=== PATIENT | female | born 1990 | race Caucasian/White ===

== ENCOUNTER 2020-06-16 13:30 | Emergency (ER) | payer OTHER ==
[~2020-06-16] VITALS: Ht 160 cm; Wt 78.6 kg
[2020-06-16 13:31] VITALS: BP 151/90
--- NOTE | 2020-06-16 13:50 | PHYS DOC ---
Past History Past Medical History: No Pertinent History Past Surgical History: No Surgical History Adult General Chief Complaint Chief Complaint: FOOT INJURY PAIN [facility] HPI Patient is a 29-year-old female who presents with left ankle inversion injury that happened just prior to arrival. States she was running down stairs in her home when she suffered an inversion type sprain, she felt she heard a "pop "with immediate focal pain to the left lateral portion of her ankle. She has been unable to bear weight on this ankle, she is concerned for potential bony abnormality. Denies any motor and/or sensory changes, no other neurologic findings Review of Systems Review of Systems Fourteen body systems of review of systems have been reviewed. See HPI for pertinent positives and negative responses, other cheng all other systems are negative, non-pertinent or non-contributory Allergies Allergies Allergies Coded Allergies Type Severity Reaction Last Updated Verified No Known Drug Allergies 06/16/20 No Physical Exam Physical Exam Constitutional: Well developed, well nourished, no acute distress, non-toxic appearance. HENT: Normocephalic, atraumatic, bilateral external ears normal, oropharynx moist, no oral exudates, nose normal. Eyes: PERRLA, EOMI, conjunctiva normal, no discharge. Neck: Normal range of motion, no tenderness, supple, no stridor. Cardiovascular: Heart rate regular, sinus rhythm, no murmurs rubs or gallops Lungs & Thorax: Bilateral breath sounds clear to auscultation Abdomen: Bowel sounds normal, soft, no tenderness, no masses, no pulsatile masses. Nonsurgical abdomen, no peritoneal signs Skin: Warm, dry, no erythema, no rash. Back: No tenderness, no CVA tenderness. Extremities: No cyanosis, no clubbing no edema. Tenderness present to left lateral malleoli in addition to base of left fifth metatarsal on left foot. Decreased range of motion in all planes of motion of left ankle due to pain otherwise unremarkable examinations, lower extremity pulses bilaterally 2+, Neurologic: Alert and oriented X 3, normal motor & sensory function in bilateral lower extremities, no focal deficits noted. Psychologic: Affect normal, judgement normal, anxious mood Current Patient Data Vital Signs Vital Signs Date Time Temp Pulse Resp B/P (MAP) Pulse Ox O2 Delivery O2 Flow Rate FiO2 06/16/20 13:31 97.1 75 16 151/90 (110) 100 Room Air EKG EKG [] Radiology/Procedures Radiology/Procedures PROCEDURE: FOOT LEFT 3V Left foot 3 views, left ankle 3 views. HISTORY: Inversion injury, pain Left foot 3 views were taken of the left foot. There is not evidence of an acute fracture or osseous abnormality. Left ankle 3 views were taken of the left ankle. There is not evidence of an acute fracture or osseous abnormality. IMPRESSION: 1. No acute fracture noted in the left foot. 2. No acute fracture noted in the left ankle. Electronically signed by: Josemanuel De La Rosa MD (06/16/2020 2:07 PM) [facility] Heart Score Risk Factors: Risk Factors: DM, Current or recent (<one month) smoker, HTN, HLP, family history of CAD, obesity. Risk Scores: Risk Factors: DM, Current or recent (<one month) smoker, HTN, HLP, family history of CAD, obesity. Course & Med Decision Making Course & Med Decision Making ABCs unremarkable Positive Bullock ankle rule, radiographs negative for any bony abnormalities of left ankle. Discussed most likely diagnosis of left ankle sprain. Patient discharged home in stable condition with close outpatient follow-up and ongoing supportive care advised Strict return precautions discussed with good understanding, all questions and concerns addressed prior to ER departure in stable condition with ankle brace and crutches Yanet Disclaimer Yanet Disclaimer This electronic medical record was generated, in whole or in part, using a voice recognition dictation system. Departure Departure: Impression: Primary Impression: Sprain of left foot Disposition: 01 DC HOME SELF CARE/HOMELESS Condition: STABLE Referrals: PCP,UNKNOWN (PCP) Patient Instructions: Foot Sprain, RICE - Routine Care for Injuries Additional Instructions: As discussed prior to ER departure, please call your primary care physician to follow-up in outpatient setting in upcoming 1 to 14 days after ER departure As discussed, please provide supportive care utilizing resources attached, utilize RICE protocol and Tylenol and/or NSAIDs for as needed pain There might be a role in further intervention and/or need for physical therapy or sports med referral if your symptoms do not improve If any concerning signs or symptoms present prior to outpatient follow-up please do not hesitate to come back for repeat examination It was a pleasure to take care of you and I wish you a speedy recovery TERRY HUIZAR DO Jun 16, 2020 13:50
[2020-06-16] MEDS ORDERED: HYDROcodone/APAP 5/325MG 1 TAB TABLET PO ONE (14:00)
--- NOTE | 2020-06-16 14:10 | RAD ---
Left foot 3 views, left ankle 3 views. HISTORY: Inversion injury, pain Left foot 3 views were taken of the left foot. There is not evidence of an acute fracture or osseous abnormality. Left ankle 3 views were taken of the left ankle. There is not evidence of an acute fracture or osseous abnormality. IMPRESSION: 1. No acute fracture noted in the left foot. 2. No acute fracture noted in the left ankle. Electronically signed by: Josemanuel De La Roas MD (06/16/2020 2:07 PM) [facility]
--- NOTE | 2020-06-16 14:10 | RAD ---
Left foot 3 views, left ankle 3 views. HISTORY: Inversion injury, pain Left foot 3 views were taken of the left foot. There is not evidence of an acute fracture or osseous abnormality. Left ankle 3 views were taken of the left ankle. There is not evidence of an acute fracture or osseous abnormality. IMPRESSION: 1. No acute fracture noted in the left foot. 2. No acute fracture noted in the left ankle. Electronically signed by: Josemanuel De La Rosa MD (06/16/2020 2:07 PM) [facility]
== END 2020-06-16 14:45 | disposition home or self-care (01) ==
LOC: ER 13:30
DX: S93.692A Other sprain of left foot, initial encounter (principal); M25.572 Pain in left ankle and joints of left foot; W10.8XXA Fall (on) (from) other stairs and steps, initial encounter; Y93.89 Activity, other specified; Y92.89 Other specified places as the place of occurrence of the external cause; Y99.8 Other external cause status
CPT/HCPCS: 73610; 73630; 99284

== ENCOUNTER 2020-08-26 06:34 | Emergency (ER) | payer OTHER ==
[~2020-08-26] VITALS: Ht 160 cm; Wt 75.0 kg
--- NOTE | 2020-08-26 07:05 | PHYS DOC ---
Past History Past Medical History: Anxiety, Other Additional Past Medical Histor: ADHD,pcos Past Surgical History: No Surgical History Alcohol Use: None General Adult EDM: Chief Complaint: SYNCOPE HPI: HPI: Patient is a 30-year-old female coming in after syncopal episode. Patient had gotten up to use the restroom and passed out from the toilet. Denies any head injuries but scraped her arm. She states that her menstrual cycles are yesterday and she has had heavy flow. And felt severe lower abdominal cramping more so on the left side prior to passing out. Has a sister who has a history of similar episodes in the attributed to PCOS and ovarian cyst. Patient states she sometimes gets lightheaded when she stands up quickly but otherwise denies any lightheadedness. Denies any recent illness. States she otherwise has been well recently. Review of Systems: Review of Systems: All other systems within normal limits except for as noted in the HPI Allergies: Allergies: Allergies Coded Allergies Type Severity Reaction Last Updated Verified No Known Drug Allergies 06/16/20 No Physical Exam: PE: Constitutional: Well developed, well nourished, no acute distress, non-toxic appearance. [] HENT: Normocephalic, atraumatic, bilateral external ears normal, nose normal. [] Eyes: PERRLA, conjunctiva normal, no discharge. [] Neck: No rigidity, supple, no stridor. [] Cardiovascular: Regular rate and rhythm, brisk cap refill [] Lungs & Thorax: Non labored symmetric respirations, no tachypnea or respiratory distress [] Abdomen: Soft, nondistended, left lower and suprapubic tenderness.. Skin: Warm, dry, no erythema, no rash. [] Back: Unremarkable Extremities: No deformities, range of motion grossly intact, no lower extremity edema [] Neurologic: Alert and oriented X 3, no focal deficits noted. [] Psychologic: Affect normal, judgement normal, mood normal. [] Current Patient Data: Vital Signs: Vital Signs Date Time Temp Pulse Resp B/P (MAP) Pulse Ox O2 Delivery O2 Flow Rate FiO2 08/26/20 06:34 98.8 54 18 132/79 (96) 100 Room Air EKG: EKG: Sinus rhythm, heart rate 55 bpm, normal axis, no ectopy, no ST elevation or depression. Normal intervals, T waves unremarkable [] Radiology/Procedures: Radiology/Procedures: EXAM: CT chest with contrast - pulmonary embolus protocol CLINICAL HISTORY: Reason: syncope, lower abdominal pain COMPARISON: None. TECHNIQUE: CT of the chest following the administration of intravenous contrast during the pulmonary arterial phase. Axial, coronal and sagittal reformatted images were generated including MIP images. ---PQRS compliance statement - One or more of the following individualized dose reduction techniques were utilized for this study: 1. Automated exposure control 2. Adjustment of the mA and/or kV according to patient size 3. Use of iterative reconstruction technique--- FINDINGS: CHEST: Diagnostic quality: Adequate. Pulmonary emboli: None seen Right heart strain: None Pulmonary arteries: Normal in caliber. Heart is not enlarged. No pericardial effusion. No pleural effusion or pneumothorax. The mediastinal or hilar lymphadenopathy. Trace residual anterior mediastinal soft tissue density likely residual thymus. Fat-containing lesion in the lateral aspect of the left breast laterally may represent a lipoma. 4 mm middle lobe lung nodule (series 4 image 77) is seen. No lobar consolidation. Bones: No aggressive osseous lesion is seen. IMPRESSION: No evidence for acute pulmonary embolus. 4 mm middle lobe lung nodule. Given patient's age, any further follow-up should be based on clinical criteria. EXAM: CT Abdomen and Pelvis with IV contrast CLINICAL HISTORY: syncope, lower abdominal pain COMPARISON: none TECHNIQUE: Helical CT of the abdomen and pelvis was performed following the administration of intravenous contrast. Axial, coronal and sagittal reformatted images were generated. PQRS compliance statement - One or more of the following individualized dose reduction techniques were utilized for this study: 1. Automated exposure control 2. Adjustment of the mA and/or kV according to patient size 3. Use of iterative reconstruction technique FINDINGS: Abdomen and Pelvis: Focal low-attenuation along the falciform ligament likely focal fatty liver. Gallbladder is normal. No biliary ductal dilatation. Pancreas is unremarkable. Spleen is normal in appearance. Adrenal glands are unremarkable. Symmetric nephrograms. No focal renal lesion. No hydronephrosis. No hydroureter. Bladder is unremarkable. No abdominal or pelvic lymphadenopathy. Moderate to large volume colonic stool content is seen. No small or large bowel dilatation. No bowel obstruction. Appendix is not convincingly seen. No significant pericecal inflammatory change. Heterogeneous enhancement of the uterus, can be correlated with pelvic ultrasound if clinically indicated. No dominant adnexal mass. No abdominal or pelvic ascites. Bones: No aggressive osseous lesion is seen. IMPRESSION: 1. Focal low-attenuation along the falciform ligament likely focal fatty infiltration. 2. Moderate colonic stool content. No bowel obstruction. 3. Heterogeneous enhancement of the uterus, can be correlated with pelvic ultrasound if clinically indicated. [] Heart Score: Risk Factors: Risk Factors: DM, Current or recent (<one month) smoker, HTN, HLP, family history of CAD, obesity. Risk Scores: Score 0 - 3: 2.5% MACE over next 6 weeks - Discharge Home Score 4 - 6: 20.3% MACE over next 6 weeks - Admit for Clinical Observation Score 7 - 10: 72.7% MACE over next 6 weeks - Early Invasive Strategies Course & Med Decision Making: Course & Med Decision Making Pertinent Labs and Imaging studies reviewed. (See chart for details) [] Yanet Disclaimer: Yanet Disclaimer: This electronic medical record was generated, in whole or in part, using a voice recognition dictation system. Departure Departure: Impression: Primary Impression: Syncope Disposition: 01 DC HOME SELF CARE/HOMELESS Condition: STABLE Referrals: PCP,UNKNOWN (PCP) Patient Instructions: Syncope BASSAM KELLY MD Aug 26, 2020 07:05
[2020-08-26 08:11] LABS: BASO % 0 % (0-3); EOS # 0.1 x10^3/uL (0.0-0.7); EOS % 1 % (0-3); HEMATOCRIT 38.4 % (36.0-47.0); HEMOGLOBIN 12.4 g/dL (12.0-15.5); LYMPH # 1.9 x10^3/uL (1.0-4.8); LYMPH % 22 % (24-48); MEAN CORPUSCULAR HEMOGLOBIN 27 pg (25-35); MEAN CORPUSCULAR HGB CONC 32 g/dL (31-37); MEAN CORPUSCULAR VOLUME 85 fL (79-100); MONO # 0.6 x10^3/uL (0.0-1.1); MONO % 7 % (0-9); NEUT % 69 % (31-73); PLATELET COUNT 173 x10^3/uL (140-400); RED BLOOD COUNT 4.53 x10^6/uL (3.50-5.40); RED CELL DISTRIBUTION WIDTH 14.6 % (11.5-14.5); WHITE BLOOD COUNT 8.7 x10^3/uL (4.0-11.0)
[2020-08-26 08:11] LABS: U PREG PATIENT NEGATIVE (NEG)
[2020-08-26 08:13] LABS: CALCIUM 9.1 mg/dL (8.5-10.1); CREATININE 0.9 mg/dL (0.6-1.0); GFR 74.6; POTASSIUM 3.4 mmol/L (3.5-5.1)
[2020-08-26 08:14] LABS: BARBITURATES NEG (NEG); BENZODIAZEPINES NEG (NEG); CANNABINOIDS NEG (NEG); COCAINE NEG (NEG); METHADONE NEG (NEG); OPIATES NEG (NEG); PHENCYCLIDINE NEG (NEG)
[2020-08-26] MEDS ORDERED: KETOROLAC 15 MG/ML VIAL. IVP ONE (08:15)
[2020-08-26] MEDS ORDERED: IV NORMAL SALINE 1,000ML 1,000 ML IV ONE (08:15)
[2020-08-26 08:18] LABS: AMPHETAMINE/METHAMPHETAMINE NEG (NEG)
[2020-08-26 08:25] LABS: ALBUMIN 4.1 g/dL (3.4-5.0); ALBUMIN/GLOBULIN RATIO 1.2 (1.0-1.7); TOTAL BILIRUBIN 0.4 mg/dL (0.2-1.0); TOTAL PROTEIN 7.6 g/dL (6.4-8.2)
[2020-08-26 08:29] LABS: COLOR,URINE YELLOW
[2020-08-26 08:30] LABS: BACTERIA,URINE 0 /HPF (0-FEW); BILIRUBIN,URINE NEG (NEG); CLARITY,URINE HAZY; GLUCOSE,URINE NEG (NEG); NITRITE,URINE NEG (NEG); RBC,URINE >40 /HPF (0-2); SQUAMOUS EPITHELIAL CELL,UR MOD /LPF; UROBILINOGEN,URINE 0.2 mg/dL (0.2 mg/dL)
[2020-08-26] MEDS ORDERED: IOHEXOL 350 MG/ML 100 ML VIAL. IV ONE (09:10)
--- NOTE | 2020-08-26 09:53 | RAD ---
EXAM: CT chest with contrast - pulmonary embolus protocol CLINICAL HISTORY: Reason: syncope, lower abdominal pain COMPARISON: None. TECHNIQUE: CT of the chest following the administration of intravenous contrast during the pulmonary arterial phase. Axial, coronal and sagittal reformatted images were generated including MIP images. ---PQRS compliance statement - One or more of the following individualized dose reduction techniques were utilized for this study: 1. Automated exposure control 2. Adjustment of the mA and/or kV according to patient size 3. Use of iterative reconstruction technique--- FINDINGS: CHEST: Diagnostic quality: Adequate. Pulmonary emboli: None seen Right heart strain: None Pulmonary arteries: Normal in caliber. Heart is not enlarged. No pericardial effusion. No pleural effusion or pneumothorax. The mediastinal or hilar lymphadenopathy. Trace residual anterior mediastinal soft tissue density lik balta residual thymus. Fat-containing lesion in the lateral aspect of the left breast laterally may rep resent a lipoma. 4 mm middle lobe lung nodule (series 4 image 77) is seen. No lobar consolidation. Bones: No aggressive osseous lesion is seen. IMPRESSION: No evidence for acute pulmonary embolus. 4 mm middle lobe lung nodule. Given patient's age, any further follow-up should be based on clinical criteria. EXAM: CT Abdomen and Pelvis with IV contrast CLINICAL HISTORY: syncope, lower abdominal pain COMPARISON: none TECHNIQUE: Helical CT of the abdomen and pelvis was performed following the administration of intrave nous contrast. Axial, coronal and sagittal reformatted images were generated. PQRS compliance statement - One or more of the following individualized dose reduction techniques wer e utilized for this study: 1. Automated exposure control 2. Adjustment of the mA and/or kV according to patient size 3. Use of iterative reconstruction technique FINDINGS: Abdomen and Pelvis: Focal low-attenuation along the falciform ligament likely focal fatty liver. Gallbladder is normal. N o biliary ductal dilatation. Pancreas is unremarkable. Spleen is normal in appearance. Adrenal glands are unremarkable. Symmetric nephrograms. No focal renal lesion. No hydronephrosis. No hydroureter. Bladder is unremarka ble. No abdominal or pelvic lymphadenopathy. Moderate to large volume colonic stool content is seen. No small or large bowel dilatation. No bowel obstruction. Appendix is not convincingly seen. No significant pericecal inflammatory change. Heterogeneous enhancement of the uterus, can be correlated with pelvic ultrasound if clinically indic ated. No dominant adnexal mass. No abdominal or pelvic ascites. Bones: No aggressive osseous lesion is seen. IMPRESSION: 1. Focal low-attenuation along the falciform ligament likely focal fatty infiltration. 2. Moderate colonic stool content. No bowel obstruction. 3. Heterogeneous enhancement of the uterus, can be correlated with pelvic ultrasound if clinically i ndicated. Electronically signed by: Rylan Muñoz MD (08/26/2020 9:51 AM) [id number]
[2020-08-26 10:10] VITALS: BP 114/65
--- NOTE | 2020-08-26 18:37 | EKG ---
[facility] ED [facility] [place] [id number] Test Date: 2020-08-26 Test Time: 07:06:09 Pat Name: KEARA CARVER Department: Room: Gender: F Reimbursement Rep: : 1990 Requested By: BASSAM KELLY Order Number: [id number] Reading MD: Kishore Echevarria Measurements Intervals [place] Rate: 55 P: 69 IA: 164 QRS: 83 QRSD: 80 T: 47 QT: 442 QTc: 425 Interpretive Statements SINUS RHYTHM NORMAL ECG RI6.02 No previous ECG available for comparison Electronically Signed On 08-27-2020 9:03:23 [employer] by Kishore Echevarria
== END 2020-08-26 10:20 | disposition home or self-care (01) ==
LOC: ER 06:34
DX: R55 Syncope and collapse (principal); R10.32 Left lower quadrant pain; R42 Dizziness and giddiness; F41.9 Anxiety disorder, unspecified; F90.9 Attention-deficit hyperactivity disorder, unspecified type; E28.2 Polycystic ovarian syndrome
CPT/HCPCS: 36415; 71275; 74177; 80053; 80307; 81001; 81025; 83880; 84484; 85025; 85379; 87077; 87086; 87186; 93005; 96361; 96374; 99285; G0480; J1885; J7030; Q9967